=== PATIENT | female | born 1975 | race Caucasian/White ===

== ENCOUNTER 2016-11-29 18:12 | Emergency (ER) | payer OTHER ==
[~2016-11-29] VITALS: Ht 162.6 cm; Wt 77.0 kg
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
[2016-11-29 19:16] VITALS: BP 126/78; PULSE 80; RESP 19; O2SAT 96
[2016-11-29 20:59] LABS: BASOPHILS % (AUTO) 0.9 % (0-3); EOSINOPHILS % (AUTO) 1.6 % (0-5); MONOCYTES % (AUTO) 8.3 % (4-12); Mean Corpuscular Hemoglobin 32.3 pg (27.0-35.0); Mean Corpuscular Volume 92.5 fL (81-100); NEUTROPHILS % (AUTO) 59.7 % (40-74); Platelet Count 338 bil/L (150-400)
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
[2016-11-29 22:17] VITALS: BP 127/68; PULSE 73; RESP 18; O2SAT 97
[2016-11-29] MEDS ORDERED: LORazepam 1 mg Tablet PO ONE (23:15)
[2016-11-30 05:06] VITALS: BP 122/83; PULSE 64; RESP 18; O2SAT 97
[2016-11-30 13:24] VITALS: BP 148/64; PULSE 92; RESP 18; O2SAT 100
== END 2016-11-30 13:25 | disposition home or self-care (01) ==
LOC: SED 18:12
DX: R45.851 Suicidal ideations (principal); S16.1XXA Strain of muscle, fascia and tendon at neck level, initial encounter; V48.5XXA Car driver injured in noncollision transport accident in traffic accident, initial encounter; Y93.89 Activity, other specified; Y92.410 Unspecified street and highway as the place of occurrence of the external cause; Y99.8 Other external cause status; F10.129 Alcohol abuse with intoxication, unspecified; F17.200 Nicotine dependence, unspecified, uncomplicated
CPT/HCPCS: 36415; 70450; 72125; 80053; 81025; 82075; 84443; 85025; 99284; G0480